=== PATIENT | male | born 1960 | race Caucasian/White ===

== ENCOUNTER → 2018-02-24 | Outpatient (CLI) | payer OTHER | LOC: AMB 19:40 | PROVIDERS: ATTEND Nurse Practitioner | DX: S72.91XB Unspecified fracture of right femur, initial encounter for open fracture type I or II (principal); S62.102A Fracture of unspecified carpal bone, left wrist, initial encounter for closed fracture; V86.52XA Driver of snowmobile injured in nontraffic accident, initial encounter; Y93.29 Activity, other involving ice and snow | CPT/HCPCS: A0998 ==